=== PATIENT | female | born 1980 | race African-American/Black ===

== ENCOUNTER 2017-12-21 15:39 | Inpatient (IN) ==
[2017-12-21] MEDS ORDERED: MEPERIDINE 25 MG/1 ML VIAL IV STA (16:21)
[2017-12-21] MEDS ORDERED: ONDANSETRON 4 MG/2 ML VIAL IV STA (16:21)
[2017-12-21] MEDS ORDERED: METOPROLOL TARTRATE 5 MG/5 ML VIAL IV STA (16:26)
[2017-12-21] MEDS ORDERED: METOPROLOL TARTRATE 5 MG/5 ML VIAL IV ONE (17:00)
[2017-12-21] MEDS ORDERED: ONDANSETRON 4 MG/2 ML VIAL ONE (17:00)
[2017-12-21] MEDS ORDERED: MEPERIDINE 25 MG/1 ML VIAL ONE (17:01)
[2017-12-21] MEDS ORDERED: hydrALAZINE 20 MG/1 ML VIAL IV STA (17:03)
[2017-12-21] MEDS ORDERED: hydrALAZINE 20 MG/1 ML VIAL ONE (17:24)
[2017-12-21 17:27] LABS: Basophils # 0.1 10*3/uL (0.0-0.2); Basophils % 0.4 % (0.0-0.8); Eosinophils % 0.2 % (0.00-10.9); Hematocrit 44.8 VOL% (35.7-47.0); Hemoglobin 14.7 GM/DL (12.0-16.0); Immature Granulocytes % 0.3 %; Immature Granulocytes Absolute 0.04 #; Lymphocytes # 2.3 10*3/uL (1.4-4.0); Lymphocytes % 19.6 % (21.3-54.2); Mean Corpuscular HGB Conc 32.8 GM/DL (32-36); Mean Corpuscular Hemoglobin 26 PG (27-34); Mean Corpuscular Volume 80.6 FL (87-102); Mean Platelet Volume 11.9 FL (9.6-12.0); Monocytes # 0.9 10*3/uL (0.11-0.8); Monocytes % 7.8 % (1.7-12.7); Neutrophils # 8.5 10*3/uL (1.4-7.4); Neutrophils % 71.7 % (38.7-73.9); Platelet Count 382 T/CUMM (130-400); Red Blood Count 5.56 MC/CUMM (3.8-5.5); Red Cell Distribution Width 14.1 % (9.3-17.3); White Blood Count 11.9 T/CUMM (4-12)
[2017-12-21 17:59] LABS: Alanine Aminotransferase 33 U/L (13-56); Albumin 4.1 G/DL (3.4-5.0); Alkaline Phosphatase 92 U/L (45-117); Aspartate Amino Transferase 18 U/L (0-37); Blood Urea Nitrogen 12 MG/DL (7-18); Glucose 278 MG/DL (74-106); Osmolality,Calculated 275.4 MOS/KG (273-304); Potassium 4.3 MMOL/L (3.5-5.1); Sodium 133 MMOL/L (136-145); Total Protein 8.4 G/DL (6.4-8.3); Troponin I Only < 0.015 NG/ML (0.00-0.045)
[2017-12-21] MEDS ORDERED: ACETAMINOPHEN 325 MG TABLET PO PRN (18:44)
[2017-12-21 19:35] LABS: Troponin I Only < 0.015 NG/ML (0.00-0.045)
[2017-12-21] MEDS ORDERED: DEXTROSE 50% 25 GM/50 ML VIAL IV PRN (19:52)
[2017-12-21] MEDS ORDERED: LABETALOL 20 MG/4 ML SYRINGE IV PRN (19:52)
[2017-12-21] MEDS ORDERED: GLUCAGON 1 MG VIAL IM PRN (19:52)
[2017-12-21] MEDS ORDERED: HEPARIN DRIP 25,000 UNITS/500 ML PREMIX IV SCH (20:00)
[2017-12-21] MEDS: ONDANSETRON 4 MG/2 ML VIAL IV PRN (20:45)
[2017-12-21] MEDS ORDERED: NITROGLYCERIN SL 0.4 MG TABLET SL PRN (20:50)
[2017-12-21] MEDS: SODIUM CHLORIDE 0.9% 1,000 ML IV SCH (22:13)
[2017-12-21] MEDS: INSULIN LISPRO 100 UNIT/ML SUBCUT SCH (22:14)
[2017-12-21 23:04] LABS: Troponin I Only < 0.015 NG/ML (0.00-0.045)
[2017-12-21 23:05] LABS: Troponin I Only < 0.015 NG/ML (0.00-0.045)
[2017-12-22 01:02] LABS: Basophils % 0.3 % (0.0-0.8); Hemoglobin 14.6 GM/DL (12.0-16.0); Immature Granulocytes % 0.5 %; Immature Granulocytes Absolute 0.06 #; Lymphocytes # 2.9 10*3/uL (1.4-4.0); Mean Corpuscular Hemoglobin 27 PG (27-34); Mean Corpuscular Volume 79.2 FL (87-102); Mean Platelet Volume 12.2 FL (9.6-12.0); Monocytes # 0.8 10*3/uL (0.11-0.8); Monocytes % 6.1 % (1.7-12.7); Neutrophils # 8.8 10*3/uL (1.4-7.4); Neutrophils % 70.1 % (38.7-73.9); Platelet Count 365 T/CUMM (130-400); Red Blood Count 5.43 MC/CUMM (3.8-5.5); Red Cell Distribution Width 14.4 % (9.3-17.3); White Blood Count 12.6 T/CUMM (4-12)
[2017-12-22 01:29] LABS: Calcium 10.1 MG/DL (8.5-10.1); Osmolality,Calculated 277.8 MOS/KG (273-304)
[2017-12-22 01:33] LABS: Troponin I Only < 0.015 NG/ML (0.00-0.045)
[2017-12-22] MEDS ORDERED: HEPARIN 5,000 UNIT/1 ML VIAL IV PRN (05:22)
[2017-12-22 07:20] LABS: Apearance,Urine CLEAR (Clear); Bilirubin,Urine Negative (Negative); Blood, Urine Negative (Negative); Glucose,Urine (UA) Negative (Negative); Ketones,Urine Negative (Negative); Mucus,Urine Occasional /LPF (Occasional); Nitrite,Urine Negative (Negative); Protein,Urine Negative; Squamous Epithelial Cell,Urine Occasional /HPF (0-10); Urine Color Yellow (Yellow); Urine Specific Gravity 1.009 (1.001-1.035); Urine Urobilinogen < 2.0 EU/DL (0.2-1.0); WBC,Urine 1 /HPF (0-6)
[2017-12-22] MEDS: SODIUM CHLORIDE 0.9% 1,000 ML IV SCH (07:43)
[2017-12-22] MEDS: hydroCHLOROthiazide 25 MG TABLET PO SCH ×2 (07:51→09:41)
[2017-12-22] MEDS: NEBIVOLOL 10 MG TABLET PO SCH ×2 (07:51→09:40)
[2017-12-22] MEDS: amLODIPine 10 MG TABLET PO SCH ×2 (07:51→09:41)
[2017-12-22] MEDS: PANTOPRAZOLE 40 MG TABLET PO SCH ×2 (07:52→09:41)
[2017-12-22] MEDS: INSULIN LISPRO 100 UNIT/ML SUBCUT SCH ×4 (07:52→21:16)
[2017-12-22] MEDS ORDERED: NITROGLYCERIN 0.2 MG/HR PATCH TRANSDERM SCH (09:00)
[2017-12-22] MEDS: ASPIRIN EC 325 MG TABLET PO SCH (09:40)
[2017-12-22] MEDS: OLMESARTAN 20 MG TABLET PO SCH (12:17)
[2017-12-22] MEDS: CARVEDILOL 12.5 MG TABLET PO SCH ×2 (12:17→16:32)
[2017-12-22] MEDS: BUTALBITAL/ACETAMIN/CAFFEINE 50-325-40 MG TABLET PO SCH ×2 (12:18→18:33)
[2017-12-22] MEDS: sitaGLIPtin 25 MG TABLET PO SCH (21:16)
[2017-12-23] MEDS: BUTALBITAL/ACETAMIN/CAFFEINE 50-325-40 MG TABLET PO SCH ×2 (00:29→06:00)
[2017-12-23] MEDS: INSULIN LISPRO 100 UNIT/ML SUBCUT SCH ×4 (08:33→21:43)
[2017-12-23] MEDS: hydroCHLOROthiazide 25 MG TABLET PO SCH (09:18)
[2017-12-23] MEDS: sitaGLIPtin 25 MG TABLET PO SCH ×2 (09:18→21:43)
[2017-12-23] MEDS: OLMESARTAN 20 MG TABLET PO SCH (09:18)
[2017-12-23] MEDS: ASPIRIN EC 325 MG TABLET PO SCH (09:19)
[2017-12-23] MEDS: CARVEDILOL 12.5 MG TABLET PO SCH ×2 (09:19→16:30)
[2017-12-23] MEDS: PANTOPRAZOLE 40 MG TABLET PO SCH (09:19)
[2017-12-24] MEDS: INSULIN LISPRO 100 UNIT/ML SUBCUT SCH ×4 (07:48→22:03)
[2017-12-24] MEDS ORDERED: ONDANSETRON 4 MG/2 ML VIAL IV ONE (08:50)
[2017-12-24] MEDS ORDERED: LACTATED RINGERS 500 ML IV ONE (08:50)
[2017-12-24] MEDS: sitaGLIPtin 25 MG TABLET PO SCH ×2 (11:09→20:57)
[2017-12-24] MEDS: OLMESARTAN 20 MG TABLET PO SCH (11:09)
[2017-12-24] MEDS: hydroCHLOROthiazide 25 MG TABLET PO SCH (11:09)
[2017-12-24] MEDS: CARVEDILOL 12.5 MG TABLET PO SCH ×2 (11:10→17:08)
[2017-12-24] MEDS: PANTOPRAZOLE 40 MG TABLET PO SCH (11:10)
[2017-12-24] MEDS: ASPIRIN EC 325 MG TABLET PO SCH (11:10)
[2017-12-24] MEDS: ONDANSETRON 4 MG/2 ML VIAL IV PRN (16:10)
[2017-12-24] MEDS: LINACLOTIDE 145 MCG CAPSULE PO SCH (18:02)
[2017-12-24] MEDS ORDERED: IBUPROFEN 600 MG TABLET PO ONE (20:05)
[2017-12-24 21:50] LABS: Apearance,Urine CLEAR (Clear); Bacteria,Urine Occasional /HPF (Few); Bilirubin,Urine Negative (Negative); Blood, Urine Negative (Negative); Glucose,Urine (UA) Negative (Negative); Ketones,Urine Negative (Negative); Mucus,Urine Occasional /LPF (Occasional); Nitrite,Urine Negative (Negative); Protein,Urine Negative; RBC,Urine 1 /HPF (0-4); Squamous Epithelial Cell,Urine Occasional /HPF (0-10); Urine Color Yellow (Yellow); Urine Specific Gravity 1.023 (1.001-1.035); Urine Urobilinogen < 2.0 EU/DL (0.2-1.0); WBC,Urine 1 /HPF (0-6)
[2017-12-24 23:01] LABS: Basophils % 0.3 % (0.0-0.8); Eosinophils # 0.1 10*3/uL (0.0-0.87); Eosinophils % 0.5 % (0.00-10.9); Hematocrit 38.5 VOL% (35.7-47.0); Hemoglobin 12.6 GM/DL (12.0-16.0); Immature Granulocytes % 0.4 %; Immature Granulocytes Absolute 0.04 #; Lymphocytes # 2.2 10*3/uL (1.4-4.0); Lymphocytes % 21.2 % (21.3-54.2); Mean Corpuscular HGB Conc 32.7 GM/DL (32-36); Mean Corpuscular Hemoglobin 26 PG (27-34); Mean Corpuscular Volume 80.7 FL (87-102); Mean Platelet Volume 11.8 FL (9.6-12.0); Monocytes # 1.3 10*3/uL (0.11-0.8); Monocytes % 12.5 % (1.7-12.7); Neutrophils # 6.9 10*3/uL (1.4-7.4); Neutrophils % 65.1 % (38.7-73.9); Platelet Count 288 T/CUMM (130-400); Red Blood Count 4.77 MC/CUMM (3.8-5.5); Red Cell Distribution Width 14.1 % (9.3-17.3); White Blood Count 10.5 T/CUMM (4-12)
[2017-12-24 23:27] LABS: Lactic Acid 1.4 MMOL/L (0.4-2.0)
[2017-12-24 23:33] LABS: Osmolality,Calculated 275.8 MOS/KG (273-304); Potassium 3.4 MMOL/L (3.5-5.1)
[2017-12-25] MEDS: INSULIN LISPRO 100 UNIT/ML SUBCUT SCH ×4 (09:17→21:19)
[2017-12-25] MEDS: ASPIRIN EC 325 MG TABLET PO SCH (09:18)
[2017-12-25] MEDS: hydroCHLOROthiazide 25 MG TABLET PO SCH (09:18)
[2017-12-25] MEDS: OLMESARTAN 20 MG TABLET PO SCH (09:18)
[2017-12-25] MEDS: PANTOPRAZOLE 40 MG TABLET PO SCH (09:18)
[2017-12-25] MEDS: sitaGLIPtin 25 MG TABLET PO SCH ×2 (09:18→21:18)
[2017-12-25] MEDS: CARVEDILOL 12.5 MG TABLET PO SCH ×2 (09:18→16:36)
[2017-12-25] MEDS ORDERED: POTASSIUM CHLORIDE 20 MEQ TABLET PO ONE (10:32)
[2017-12-25] MEDS: acetaZOLAMIDE 250 MG TABLET PO SCH ×2 (11:57→21:18)
[2017-12-25] MEDS: LINACLOTIDE 145 MCG CAPSULE PO SCH (16:36)
[2017-12-25] MEDS: ONDANSETRON 4 MG/2 ML VIAL IV PRN (18:33)
[2017-12-25] MEDS ORDERED: SENNA 8.6 MG TABLET PO SCH (21:00)
[2017-12-25] MEDS: POLYETHYLENE GLYCOL POWDER 17 GM PACK PO SCH (21:18)
[2017-12-25] MEDS: DOCUSATE SODIUM 100 MG CAPSULE PO SCH (21:18)
[2017-12-26 05:29] LABS: Basophils # 0.1 10*3/uL (0.0-0.2); Basophils % 0.6 % (0.0-0.8); Eosinophils # 0.1 10*3/uL (0.0-0.87); Eosinophils % 0.8 % (0.00-10.9); Hematocrit 40.3 VOL% (35.7-47.0); Hemoglobin 13.3 GM/DL (12.0-16.0); Immature Granulocytes % 0.2 %; Immature Granulocytes Absolute 0.02 #; Lymphocytes # 2.6 10*3/uL (1.4-4.0); Lymphocytes % 26.6 % (21.3-54.2); Mean Corpuscular Hemoglobin 27 PG (27-34); Mean Corpuscular Volume 81.1 FL (87-102); Monocytes # 1.4 10*3/uL (0.11-0.8); Monocytes % 14.3 % (1.7-12.7); Neutrophils # 5.7 10*3/uL (1.4-7.4); Neutrophils % 57.5 % (38.7-73.9); Platelet Count 300 T/CUMM (130-400); Red Blood Count 4.97 MC/CUMM (3.8-5.5); White Blood Count 9.9 T/CUMM (4-12)
[2017-12-26 06:21] LABS: Calcium 9.3 MG/DL (8.5-10.1); Osmolality,Calculated 273.8 MOS/KG (273-304); Potassium 3.9 MMOL/L (3.5-5.1)
[2017-12-26] MEDS: INSULIN LISPRO 100 UNIT/ML SUBCUT SCH ×2 (09:47→12:41)
[2017-12-26] MEDS: acetaZOLAMIDE 250 MG TABLET PO SCH (10:03)
[2017-12-26] MEDS: hydroCHLOROthiazide 25 MG TABLET PO SCH (10:03)
[2017-12-26] MEDS: OLMESARTAN 20 MG TABLET PO SCH (10:03)
[2017-12-26] MEDS: sitaGLIPtin 25 MG TABLET PO SCH (10:04)
[2017-12-26] MEDS: CARVEDILOL 12.5 MG TABLET PO SCH (10:04)
[2017-12-26] MEDS: POLYETHYLENE GLYCOL POWDER 17 GM PACK PO SCH (10:04)
[2017-12-26] MEDS: PANTOPRAZOLE 40 MG TABLET PO SCH (10:04)
[2017-12-26] MEDS: ASPIRIN EC 325 MG TABLET PO SCH (10:04)
[2017-12-26] MEDS: DOCUSATE SODIUM 100 MG CAPSULE PO SCH (10:05)
[2017-12-26 11:47] VITALS: BP 120/79
== END 2017-12-26 12:00 | disposition home or self-care (01) | DRG 305 ==
LOC: N.ED 15:39 → N.EDINP 18:14 → SUATTDRO 18:14 → N.TELES 19:08 → N.TELEN 19:31
PROVIDERS: ADMIT Hospitalist; ATTEND Hospitalist